=== PATIENT | male | born 1995 | race Caucasian/White ===

== ENCOUNTER 2016-05-20 08:24 | Emergency (ER) | payer BC, OTHER ==
[~2016-05-20] VITALS: Ht 172.7 cm; Wt 78.0 kg
[~2016-05-20 08:24] MED LIST: NORCO 5-325 TA1 EACH PO
[2016-05-20 08:26] VITALS: BP 149/96
[2016-05-20] MEDS ORDERED: NAPROSYN500 MG PO (09:11)
== END 2016-05-20 09:21 ==
LOC: ER 08:24
DX: S83.92XA Sprain of unspecified site of left knee, initial encounter (principal); F10.99 Alcohol use, unspecified with unspecified alcohol-induced disorder; X58.XXXA Exposure to other specified factors, initial encounter; Y93.39 Activity, other involving climbing, rappelling and jumping off; Y92.89 Other specified places as the place of occurrence of the external cause; Y99.8 Other external cause status